=== PATIENT | female | born 1935 | race Two or more races ===

== ENCOUNTER 2020-03-05 10:05 | Outpatient (CLI) | payer OTHER | END 2020-03-05 10:16 | disposition home or self-care (01) | LOC: TOM 10:05 | PROVIDERS: ATTEND Internal Medicine Gastroenterology | DX: K56.600 Partial intestinal obstruction, unspecified as to cause (principal); R10.84 Generalized abdominal pain; R19.5 Other fecal abnormalities ==

== ENCOUNTER → 2021-08-04 08:00 | Outpatient (CLI) | payer OTHER | END | disposition home or self-care (01) | LOC: LAB 08:00 → ADM 13:30 → AMB-ENDOS 08-06 13:30 → EDSTATUS 08-06 13:30 | PROVIDERS: ATTEND Surgery | DX: R19.7 Diarrhea, unspecified (principal); R63.4 Abnormal weight loss; R97.0 Elevated carcinoembryonic antigen [CEA] ==